=== PATIENT | male | born 1990 | race African-American/Black ===

== ENCOUNTER 2021-03-03 13:43 | Emergency (ER) | payer BC ==
[~2021-03-03] VITALS: Ht 170.2 cm; Wt 57.7 kg
[2021-03-03 14:03] VITALS: TEMP 97.8
[2021-03-03] MEDS ORDERED: PROVENTIL0.09 MG/A1 IH (15:19)
[2021-03-03] MEDS ORDERED: ALBUTEROL0.83 MG/ML IH (15:19)
[2021-03-03] MEDS ORDERED: PREDNISONE20 MG PO (15:19)
[2021-03-03] MEDS ORDERED: 00186-0372-20 IH (15:19)
[2021-03-03 15:30] VITALS: BP 132/79; PULSE 89
== END 2021-03-03 15:30 | disposition home or self-care (01) ==
LOC: COL.ER 13:43
DX: J45.901 Unspecified asthma with (acute) exacerbation (principal); R07.89 Other chest pain
CPT/HCPCS: J7512